=== PATIENT | female | born 2000 | race Caucasian/White ===

== ENCOUNTER 2020-12-06 09:37 | Outpatient (CLI) | payer OTHER, SELFPAY ==
--- NOTE | 2020-12-06 09:46 | US_ITS ---
WS: [id number] Complete ABDOMINAL ULTRASOUND HISTORY: GERD W/O ESOPHAGITIS COMPARISON: None available. Liver: 16.1 cm in length. Liver is normal size and echogenicity with no mass or intrahepatic dilatati on. Gallbladder: Normally distended gallbladder. Stones and sludge. There is a moderate size stone which may be entrapped at the gallbladder neck. Stone measures 2.2 cm in width. Gallbladder wall thickness: 0.3 cm. Pancreas: Normal size and echogenicity. CBD: 0.6 cm. Right kidney: 10.2 cm x 5.9 cm x 5.2 cm. No mass, cortical thickening or hydronephrosis. Left kidney: 10.8 cm x 5.4 cm x 6.0 cm. No mass, cortical thickening or hydronephrosis. Spleen: Normal size and echogenicity. Abdominal aorta and IVC are within normal limits. No ascites. US/US abdomen complete* [id number] IMPRESSION: 1. Cholelithiasis and gallbladder sludge. 2.2 cm stone may be entrapped at the gallbladder neck. 2. No bile duct dilatation.
== END 2020-12-06 09:38 | disposition home or self-care (01) ==
LOC: RAD 09:41
PROVIDERS: PCP Registered Nurse; Visit Provider Registered Nurse
DX: K21.9 Gastro-esophageal reflux disease without esophagitis (principal); K80.20 Calculus of gallbladder without cholecystitis without obstruction
CPT/HCPCS: 76700

== ENCOUNTER → 2021-03-31 11:12 | Outpatient (BNVA) | payer OTHER, SELFPAY | PROVIDERS: PCP Registered Nurse; Visit Provider Surgery | DX: Z11.52 Encounter for screening for COVID-19 (principal); Z20.822 Contact with and (suspected) exposure to COVID-19 | CPT/HCPCS: 87635 ==

== ENCOUNTER 2021-04-07 06:03 | Day surgery (SDC) | payer OTHER, SELFPAY ==
[2021-04-04 13:59] VITALS: BMI 45.4
[2021-04-07 06:20] VITALS: BP 166/108; PULSE 89; RESP 18; TEMP 36.8; O2SAT 99
[2021-04-07 06:22] LABS: OR HCG Qualitative Urine Negative (Negative)
--- NOTE | 2021-04-07 06:43 | ANES.PREANE2 ---
Pre-Anesthetic Assessment Pre-Anesthetic Assessment: Height/Weight: Height 1.7 m Weight 131.542 kg Temp Pulse Resp BP Pulse Ox 98.2 F 89 18 166/108 99 04/07/21 06:20 04/07/21 06:20 04/07/21 06:20 04/07/21 06:20 04/07/21 06:20 Preop Diagnosis: Cholelithiasis Proposed Procedure: Operation Date: 04/07/21 07:30 Proposed Procedures p Laparoscopic Cholecystectomy 75290 K80.20(Not Applicable) - Jonathan Arambula MD Familial anesthetic complications: Mother - PONV Was Beta Sofya taken within 24 hours: N/A Was Clonidine taken within 24 hours: N/A Last intake: Intake Last Liquid Date 04/06/21 Last Liquid Time 20:00 Last Solid Date 04/06/21 Last Solid Time 20:00 Social: Social History: No alcohol and No tobacco Exam: Pre-Anes Outpt Exam: alert, oriented x 3, clear to auscultation bilaterally and regular rate & rhythm Airway: Cervical ROM: WNL MP: 1 Dentition: Full GI: GI: GERD Metabolic: Metabolic: Morbid obesity Anesthetic Plan: ASA status: 2 Anesthesia: General Risk of > 500 ml blood loss (7ml/kg in children): No PFSH Anesthesia PFSH: Medical History (Updated 03/31/21 @ 16:00 by Jonathan Arambula MD) GERD (gastroesophageal reflux disease) Social History (Updated 02/03/21 @ 10:26 by Harriet Zapata RN) Smoking and tobacco status: former smoker Female Reproductive History: Date of last menstrual period: 03/07/21 Data Anesthesia Other Labs: Laboratory Results - last 48 hr 04/07/21 06:11 Urine HCG, Qual Negative Cardiac Studies: No Data to Display
--- NOTE | 2021-04-07 06:49 | W.PM.OPSUD ---
Surgery/Procedure H&P Update DATE OF PROCEDURE: April 07, 2021 DATE H&P PERFORMED: 03/31/21 H&P UPDATE INFORMATION: I have reviewed H&P completed within last 30 days, I have examined patient prior to procedure and No changes to prior documentation PREOP DIAGNOSIS: Cholelithiasis PLANNED PROCEDURE: Operation Date: 04/07/21 07:30 Proposed Procedures p Laparoscopic Cholecystectomy 37756 K80.20(Not Applicable) - Jonathan Arambula MD
[2021-04-07] MEDS: midazolam 1 mg/mL INJ 2 mL 2 MG IVP (07:00)
[2021-04-07] MEDS: sodium chloride 0.9% 1,000 ML 30 ML IV (07:00)
[2021-04-07] MEDS: levofloxacin-dextrose 5 % 750 MG/150 ML PREMIX 100 MG IV (07:27)
[2021-04-07 08:26] VITALS: BP 149/80; PULSE 99; RESP 20; TEMP 36.5; O2SAT 95
[2021-04-07 08:30] VITALS: BP 137/71; PULSE 92; RESP 17; O2SAT 97
[2021-04-07 08:35] VITALS: BP 105/85; PULSE 85; RESP 16; TEMP 36.6; O2SAT 96
--- NOTE | 2021-04-07 08:38 | P.OP_ITS ---
Operative Report Date of procedure: April 07, 2021 Pre-op Diagnosis: Cholelithiasis Post-op Diagnosis: 1. Cholelithiasis 2. Hydrops gallbladder Procedure Done: Laparoscopic cholecystectomy Specimens removed/disposition: Gallbladder Surgeon: Jonathan Arambula Anesthesia: General Condition: stable Disposition: PACU Procedure: The patient was taken to the operating room and was intubated under general anesthesia. After the antibiotic had been administered, the abdomen was prepped and draped in a sterile manner. Using a #15 blade, a 1 centimeter infraumbilical curvilinear incision was made and using an open Amanda technique the peritoneal cavity was entered. A 10 millimeter port was placed and 15 millimeters of pneumoperitoneum was created. A 10 millimeter, 30 degrees scope was then introduced. Three 5 millimeter ports were placed in the epigastric, midclavicular and the anterior axillary line two fingerbreadths below the costal margin on the right side under the direct visualization. The gallbladder was d istended and using an aspiration needle 60 cc of clear bile was aspirated. Ratcheted forceps were introduced into the lateral most port and was used to retract the fundus of the gallbladder cephalad and using forceps the infundibulum of the gallbladder was retracted laterally. Using L-hook cautery the peritoneum overlying the Calot's triangle was opened medially and laterally until the cystic duct and the cystic artery were skeletonized. Dissection was carried along the body of the gallbladder and after ensuring critical view of safety, 4 clips applied on the cystic duct and 3 clips applied on the cystic artery and cut leaving, 3 clips on the remaining portion of the duct and 2 clips on the remaining portion of the anterior and posterior branch of the cystic artery. The rest of the gallbladder was dissected off the liver using L-hook cautery. There was no bleeding or bile leaking noted from the gallbladder fossa and the clips appeared to be in place. An EndoCatch bag was introduced to remove the gallbladder. All the ports were removed under direct visualization and there was no bleeding noted from the port sites. The fascia of the umbilicus was closed using [id number] 0 Vicryl sutures and the subcutaneous tissue was approximated using 3-0 Vicryl sutures. The skin at all four ports were closed using 4-0 Monocryl and Dermabond. A total of 10 millimeters of 0.5% Marcaine was infiltrated around the port sites. The patient was stable throughout the procedure.
[2021-04-07 08:42] VITALS: BP 128/73; PULSE 77; RESP 18; TEMP 36.6; O2SAT 98
[2021-04-07] MEDS: HYDROcodone-acetaminophen 5-325 mg Tablet 1 TAB PO (08:53)
[2021-04-07 08:57] VITALS: BP 147/95; PULSE 71; RESP 18; TEMP 36.6; O2SAT 100
--- NOTE | 2021-04-07 15:01 | ANE.PACU2 ---
Inpatient post-anesthesia follow up: Airway intact: Yes Vital signs: Temperature 97.9 F Pulse Rate 71 Respiratory Rate 18 Blood Pressure 147/95 Pulse Oximetry 100 Oxygen Delivery Me thod Room Air Oxygen Flow Rate Fraction of Inspir ed Oxygen Hydration adequate: Yes Nausea and vomiting: No Pain level: 1 Mental status: Baseline
== END 2021-04-07 09:15 | disposition home or self-care (01) ==
PROVIDERS: Anesthesiology; PCP Registered Nurse; Visit Provider Surgery
PROC: 0FT44ZZ Resection of Gallbladder, Percutaneous Endoscopic Approach (ICD-10-PCS; CPT 47562; principal; 2021-04-07 07:30)
DX: K80.20 Calculus of gallbladder without cholecystitis without obstruction (principal); K21.9 Gastro-esophageal reflux disease without esophagitis; Z87.891 Personal history of nicotine dependence
CPT/HCPCS: 47562; 81025; 84703; 88304; 96374; J0330; J1100; J1885; J1956; J2250; J2405; J2710; J3010; J3490; J7030